=== PATIENT | female | born 1970 | race Caucasian/White ===

== ENCOUNTER 2017-10-20 12:33 | Emergency (ER) | payer BC, OTHER ==
[~2017-10-20] VITALS: Ht 160 cm; Wt 166.0 kg
[2017-10-20 14:00] VITALS: BP 136/89
[2017-10-20] MEDS ORDERED: ONDANSETRON 4 MG/2 ML (SDV) Z0FRAN IVP ONE (14:15)
[2017-10-20] MEDS ORDERED: NS IV 1000 ML 1,000 ML IV SCH (14:15)
--- NOTE | 2017-10-20 14:15 | ED Abdominal Pain ---
General Chief Complaint: Abdominal/GI Problems Stated Complaint: CHEST/ABD PAIN Source of Information: Patient Exam Limitations: No Limitations History of Present Illness Date Seen by Provider: October 20, 2017 Time Seen by Provider: 14:13 Initial Comments To ER per private vehicle from a clinic in [facility] with reports of epigastric abdominal pain for the past 2-3 days associated with nausea and inability to eat. No vomiting. No bowel changes no fevers or chills. She is concerned that this may be either her pancreas or her heart. She has no personal history of heart disease nor does she have any history of immediate family cardiac history. She is a nonsmoker, she quit 3 years ago. She is a diabetic. She denies any chest pain or shortness of breath. Timing/Duration: 1-2 Days Severity/Quality: Moderate Location: Epigastric Radiation: No Radiation Activities at Onset: None Associated Symptoms: Nausea/Vomiting Allergies and Home Medications Allergies Coded Allergies: No Known Drug Allergies (Unverified , 10/20/17) Patient Home Medication List Home Medication List Reviewed: Yes Review of Systems Constitutional: see HPI EENTM: No Symptoms Reported Respiratory: No Symptoms Reported; Denies Cough, Denies Orthopnea Cardiovascular: See HPI; Denies Chest Pain, Denies Edema, Denies Irregular Heart Rate, Denies Lightheadedness Gastrointestinal: See HPI, Abdominal Pain; Denies Constipated, Denies Diarrhea ; Nausea; Denies Vomiting Musculoskeletal: no symptoms reported Skin: no symptoms reported Psychiatric/Neurological: No Symptoms Reported Endocrine: No Symptoms Reported Past Msdjbiu-Rfqryw-Uwrwvf Hx Patient Social History Alcohol Use: Denies Use Recreational Drug Use: No Smoking Status: Never a Smoker Recent Foreign Travel: No Contact w/Someone Who Travel: No Past Medical History Surgeries: Yes Gallbladder, Orthopedic Cardiac: Yes Hypertension Neurological: No Genitourinary: No Gastrointestinal: No Musculoskeletal: No Endocrine: Yes Diabetes, Non-Insulin dep Cancer: No Psychosocial: No Physical Exam Vital Signs Vital Signs - First Documented 10/20/17 12:49 Temp 98.8 Pulse 96 Resp 18 B/P (MAP) 165/100 (121) Pulse Ox 94 O2 Delivery Room Air Capillary Refill : General Appearance: WD/WN, no apparent distress HEENT: PERRL/EOMI, normal ENT inspection Neck: non-tender, full range of motion Respiratory: normal breath sounds, no respiratory distress, no accessory muscle use Cardiovascular: regular rate, rhythm, no murmur Gastrointestinal: normal bowel sounds, soft, tenderness (Epigastric tenderness) Extremities: normal range of motion, non-tender Neurologic/Psychiatric: alert, normal mood/affect, oriented x 3 Skin: normal color, warm/dry Progress/Results/Core Measures Results/Orders Lab Results Laboratory Tests Test 10/20/17 14:24 Range/Units White Blood Count 13.0 H 4.3-11.0 10^3/uL Red Blood Count 4.82 4.35-5.85 10^6/uL Hemoglobin 13.7 11.5-16.0 G/DL Hematocrit 41 35-52 % Mean Corpuscular Volume 84 80-99 FL Mean Corpuscular Hemoglobin 28 25-34 PG Mean Corpuscular Hemoglobin Concent 34 32-36 G/DL Red Cell Distribution Width 14.1 10.0-14.5 % Platelet Count 369 130-400 10^3/uL Mean Platelet Volume 9.6 7.4-10.4 FL Neutrophils (%) (Auto) 74 42-75 % Lymphocytes (%) (Auto) 15 12-44 % Monocytes (%) (Auto) 7 0-12 % Eosinophils (%) (Auto) 4 0-10 % Basophils (%) (Auto) 0 0-10 % Neutrophils # (Auto) 9.7 H 1.8-7.8 X 10^3 Lymphocytes # (Auto) 1.9 1.0-4.0 X 10^3 Monocytes # (Auto) 0.9 0.0-1.0 X 10^3 Eosinophils # (Auto) 0.5 H 0.0-0.3 10^3/uL Basophils # (Auto) 0.0 0.0-0.1 10^3/uL Sodium Level 135 135-145 MMOL/L Potassium Level 4.1 3.6-5.0 MMOL/L Chloride Level 102 98-107 MMOL/L Carbon Dioxide Level 24 21-32 MMOL/L Anion Gap 9 5-14 MMOL/L Blood Urea Nitrogen 7 7-18 MG/DL Creatinine 0.67 0.60-1.30 MG/DL Estimat Glomerular Filtration Rate > 60 BUN/Creatinine Ratio 10 Glucose Level 117 H 70-105 MG/DL Calcium Level 9.3 8.5-10.1 MG/DL Total Bilirubin 0.6 0.1-1.0 MG/DL Aspartate Amino Transf (AST/SGOT) 14 5-34 U/L Alanine Aminotransferase (ALT/SGPT) 21 0-55 U/L Alkaline Phosphatase 103 40-136 U/L Troponin I < 0.30 <0.30 NG/ML Total Protein 7.5 6.4-8.2 GM/DL Albumin 4.2 3.2-4.5 GM/DL Lipase 7 L 8-78 U/L My Orders Orders - MINESH DILLON APRN Cbc With Automated Diff (10/20/17 14:11) Comprehensive Metabolic Panel (10/20/17 14:11) Ua Culture If Indicated (10/20/17 14:11) Fc-Cfvfvnp-Gskutf (Order) (10/20/17 14:11) Lipase (10/20/17 14:11) Ekg Tracing (10/20/17 14:11) Troponin I (10/20/17 14:11) Chest Pa/Lat (2 View) (10/20/17 14:11) Ns Iv 1000 Ml (Sodium Chloride 0.9%) (10/20/17 14:15) Ondansetron Injection (Zofran Injectio (10/20/17 14:15) Antacid Suspension (Mylanta Suspension (10/20/17 15:30) Lidocaine 2% Viscous 15 Ml (Xylocaine Vi (10/20/17 15:30) Ct Abdomen/Pelvis W (10/20/17 15:18) Iohexol Injection (Omnipaque 350 Mg/Ml 1 (10/20/17 15:30) Ns (Ivpb) (Sodium Chloride 0.9%) (10/20/17 15:30) Medications Given in ED Current Medications Medications Dose Ordered Sig/Duke Route Start Time Stop Time Status Last Admin Dose Admin Al Hydrox/Mg Hydrox/Simethicone 30 ml ONCE ONCE PO 10/20/17 15:30 10/20/17 15:31 DC 10/20/17 15:39 30 ML Iohexol 100 ml ONCE ONCE IV 10/20/17 15:30 10/20/17 15:31 DC 10/20/17 15:46 100 ML Lidocaine HCl 15 ml ONCE ONCE PO 10/20/17 15:30 10/20/17 15:31 DC 10/20/17 15:39 15 ML Ondansetron HCl 8 mg ONCE ONCE IVP 10/20/17 14:15 10/20/17 14:16 DC 10/20/17 14:33 8 MG Sodium Chloride 250 ml ONCE ONCE IV 10/20/17 15:30 10/20/17 15:31 DC 10/20/17 15:46 80 ML Vital Signs/I&O 10/20/17 10/20/17 12:49 14:00 Temp 98.8 Pulse 96 97 Resp 18 18 B/P (MAP) 165/100 (121) 136/89 (105) Pulse Ox 94 96 O2 Delivery Room Air Room Air Departure Communication (Admissions) 1108-no improvement in pain after Toradol for a GI cocktail. She is on contrave weight loss medication so opiates will not be effective for her. I'll give a prescription for acid human factors advisor lead and Zofran. Impression Primary Impression: Epigastric abdominal pain Disposition: HOME, SELF-CARE Condition: Stable Departure-Patient Inst. Decision time for Depature: 16:24 Referrals: NO,LOCAL PHYSICIAN (PCP/Family) Primary Care Physician Patient Instructions: Acute Abdomen (Belly Pain), Adult (DC) Add. Discharge Instructions: 1. Acid human factors advisor lead as directed 2. Nausea medication as needed All discharge instructions reviewed with patient and/or family. Voiced understanding. Scripts Ondansetron (Zofran Odt) 8 Mg Tab.rapdis 8 MG PO Q6H PRN for NAUSEA/VOMITING-1ST LINE, #10 TAB Prov: MINESH DILLON APRN 10/20/17 Famotidine (Pepcid) 20 Mg Tablet 20 MG PO BID, #14 TAB Prov: MINESH DILLON APRN 10/20/17 MIENSH DILLON APRN October 20, 2017 14:15
[2017-10-20 14:31] LABS: BASOPHILS % (AUTO) 0 % (0-10); EOSINOPHILS # (AUTO) 0.5 10^3/uL (0.0-0.3); EOSINOPHILS % (AUTO) 4 % (0-10); HEMATOCRIT 41 % (35-52); HEMOGLOBIN 13.7 G/DL (11.5-16.0); LYMPHOCYTES # (AUTO) 1.9 X 10^3 (1.0-4.0); LYMPHOCYTES % (AUTO) 15 % (12-44); MEAN CORPUSCULAR HEMOGLOBIN 28 PG (25-34); MEAN CORPUSCULAR HGB CONC 34 G/DL (32-36); MEAN CORPUSCULAR VOLUME 84 FL (80-99); MEAN PLATELET VOLUME 9.6 FL (7.4-10.4); MONOCYTES # (AUTO) 0.9 X 10^3 (0.0-1.0); MONOCYTES % (AUTO) 7 % (0-12); NEUTROPHILS # (AUTO) 9.7 X 10^3 (1.8-7.8); NEUTROPHILS % (AUTO) 74 % (42-75); PLATELET COUNT 369 10^3/uL (130-400); RED BLOOD COUNT 4.82 10^6/uL (4.35-5.85); RED CELL DISTRIBUTION WIDTH 14.1 % (10.0-14.5)
[2017-10-20 14:56] LABS: ALANINE AMINOTRANSFERASE 21 U/L (0-55); ALBUMIN 4.2 GM/DL (3.2-4.5); ALKALINE PHOSPHATASE 103 U/L (40-136); BILIRUBIN,TOTAL 0.6 MG/DL (0.1-1.0); BUN/CREATININE RATIO 10; CALCIUM 9.3 MG/DL (8.5-10.1); CARBON DIOXIDE 24 MMOL/L (21-32); CHLORIDE 102 MMOL/L (98-107); CREATININE SERUM 0.67 MG/DL (0.60-1.30); GFR ESTIMATED > 60; GLUCOSE 117 MG/DL (70-105); LIPASE 7 U/L (8-78); POTASSIUM 4.1 MMOL/L (3.6-5.0); SODIUM 135 MMOL/L (135-145); TOTAL PROTEIN 7.5 GM/DL (6.4-8.2)
--- NOTE | 2017-10-20 15:02 | Diagnostic Imaging Report ---
INDICATION: Chest pain. EXAMINATION: Single view of the chest was obtained at 3:09 p.m. COMPARISON: No prior studies are available for comparison. FINDINGS: The heart size is normal. The pulmonary vascularity is unremarkable. The lungs are clear. No infiltrate, effusion or pneumothorax is detected. IMPRESSION: No acute cardiopulmonary process is detected. Dictated by: Dictated on workstation # [id number]
[2017-10-20] MEDS ORDERED: LIDOCAINE 2% VISCOUS 15 ML UDC PO ONE (15:30)
[2017-10-20] MEDS ORDERED: NS 250 ML (IVPB) BAG IV ONE (15:30)
[2017-10-20] MEDS ORDERED: ANTACID SUSP 30 ML UDC (MYLANTA) PO ONE (15:30)
[2017-10-20] MEDS ORDERED: IOHEXOL 350 MG/ML 100 ML (OMNIPAQUE 350) VIAL IV ONE (15:30)
--- NOTE | 2017-10-20 16:14 | Diagnostic Imaging Report ---
PROCEDURE: CT abdomen and pelvis with contrast. TECHNIQUE: Multiple contiguous axial images were obtained through the abdomen and pelvis after administration of intravenous contrast. INDICATION: Mid upper abdominal pain x3 days. Nausea. COMPARISON: None. FINDINGS: Included portions of the lung bases are clear. CT ABDOMEN: Normal appendix is identified. Small bowel loops are nondistended. Liver appears diffusely hypodense on this postcontrast exam. Otherwise, the liver, adrenal glands, kidneys, spleen, and pancreas have a normal CT appearance. There is no loculated fluid collection, free fluid, nor free air within the abdomen. No abnormal mesenteric or retroperitoneal adenopathy is seen. Bony structures show no acute abnormalities. CT PELVIS: Urinary bladder is grossly unremarkable. There is no loculated fluid collection, free fluid, nor free air within the pelvis. No abnormal lymph nodes are seen. Bony structures show no acute abnormalities. IMPRESSION: 1. No acute abnormalities are seen within the abdomen or pelvis. 2. Hepatic steatosis. Dictated by: Dictated on workstation # [id number]
[2017-10-20] MEDS ORDERED: ONDA8TAB9 PO (16:27)
[2017-10-20] MEDS ORDERED: FAMO-119 PO (16:27)
[2017-10-20 16:32] LABS: BILIRUBIN,URINE NEGATIVE (NEGATIVE); CLARITY,URINE CLEAR; COLOR,URINE YELLOW; GLUCOSE, URINE (UA) NEGATIVE (NEGATIVE); KETONES,URINE 2+ (NEGATIVE); LEUKOCYTE ESTERASE ,URINE 2+ (NEGATIVE); NITRITE,URINE NEGATIVE (NEGATIVE); PH,URINE 5 (5-9); PROTEIN,URINE 1+ (NEGATIVE); UROBILINOGEN,URINE NORMAL (NORMAL)
[2017-10-20 16:46] LABS: BACTERIA,URINE TRACE /HPF
[2017-10-20] MEDS ORDERED: SULF1TAB35 PO (16:53)
[2017-10-20 17:06] VITALS: BP 119/83
== END 2017-10-20 17:06 | disposition home or self-care (01) ==
LOC: ER 12:37
DX: R10.13 Epigastric pain (principal); E11.9 Type 2 diabetes mellitus without complications; I10 Essential (primary) hypertension; Z87.891 Personal history of nicotine dependence
CPT/HCPCS: 36415; 71046; 74177; 80053; 81000; 83690; 84484; 85025; 87077; 87088; 93005; 96361; 96374

== ENCOUNTER 2018-08-23 10:51 | Emergency (ER) | payer BC ==
[~2018-08-23] VITALS: Ht 160 cm; Wt 174.6 kg
[~2018-08-23 10:51] MED LIST: FAMO-119 PO; ONDA8TAB9 PO; SULF1TAB35 PO
[2018-08-23] MEDS ORDERED: HYDR-3820 PO (11:50)
[2018-08-23] MEDS ORDERED: MONT10TA21 PO (11:50)
[2018-08-23] MEDS ORDERED: METF-399 PO (11:50)
[2018-08-23] MEDS ORDERED: LISI10TA2 PO (11:50)
[2018-08-23] MEDS ORDERED: oxyCODONE/APAP 10/325MG (PERCOCET 10) TABLET PO ONE (12:00)
[2018-08-23] MEDS ORDERED: oxyCODONE/APAP 5/325MG (PERCOCET 5) TABLET ONE (12:05)
[2018-08-23 12:07] LABS: CLARITY,URINE CLEAR; COLOR,URINE YELLOW; GLUCOSE, URINE (UA) 2+ (NEGATIVE); PROTEIN,URINE NEGATIVE (NEGATIVE)
[2018-08-23 12:08] LABS: BACTERIA,URINE MODERATE /HPF; BILIRUBIN,URINE NEGATIVE (NEGATIVE); KETONES,URINE TRACE (NEGATIVE); LEUKOCYTE ESTERASE ,URINE NEGATIVE (NEGATIVE); NITRITE,URINE NEGATIVE (NEGATIVE); RBC,URINE 0-2 /HPF; SQUAMOUS EPITHELIAL CELL,UR 25-50 /HPF; UROBILINOGEN,URINE 0.2 MG/DL (NORMAL)
--- NOTE | 2018-08-23 12:53 | Diagnostic Imaging Report ---
PROCEDURE: CT abdomen and pelvis without contrast. TECHNIQUE: Multiple contiguous axial images were obtained through the abdomen and pelvis without the use of intravenous contrast. INDICATION: Right-sided abdominal pain around back on the right side x4 days. CORRELATION STUDY: 10/20/2017 FINDINGS: Examination is limited given extensive soft tissue attenuation artifact as well as lack of contrast. LOWER THORAX: Clear. LIVER: Rather enlarged measuring approximately 27 cm in craniocaudal length. There is extensive fatty infiltration of the liver. GALLBLADDER: Cholecystectomy. No significant bile duct dilatation. Additional clips adjacent inferior margins of the liver. SPLEEN: Borderline in size, otherwise unremarkable. PANCREAS: Unremarkable. ADRENAL GLANDS: Unremarkable. KIDNEYS: Normal configuration. No calcification or obstruction. ABDOMINAL AORTA: Unremarkable, nonaneurysmal. GASTROINTESTINAL TRACT: No obstruction or inflammation. Normal appendix. No abdominal ascites or free air. URINARY BLADDER: Relatively decompressed. REPRODUCTIVE: Uterus and adnexa unremarkable. OSSEOUS STRUCTURES: No acute abnormality. OTHER: None. IMPRESSION: 1. Negative for acute abnormality of the abdomen or pelvis on noncontrast CT imaging. 2. Rather significant severity hepatomegaly with pronounced hepatic steatosis. Dictated by: Dictated on workstation # [id number]
[2018-08-23] MEDS ORDERED: OXYC1TAB12 PO (13:04)
[2018-08-23 13:12] VITALS: BP 148/92
--- NOTE | 2018-08-23 13:36 | ED Abdominal Pain ---
General Chief Complaint: -Female Stated Complaint: RT FLANK/BACK/URINARY PAIN Nursing Triage Note: PT REPORTS RIGHT SIDED FLANK AND BACK PAIN. iS CURRENTLY ON BACTRIM FOR A UTI. Sepsis Screen: No Definite Risk Source of Information: Patient History of Present Illness Date Seen by Provider: Aug 23, 2018 Time Seen by Provider: 11:00 Initial Comments A 8-year-old female presents with right-sided flank pain onset was 3 days ago. Patient seen by her PCP for the same and prescribed Bactrim DS for lower urinary tract infection. Patient denies nausea vomiting, fever chills or sweats. Denies hematuria. Patient was told that she may possibly have a kidney stone was referred to the ED for further evaluation. Denies history of kidney stones, decreased urine output. Patient does not have regular menstrual periods. Denies lower extremity weakness or loss of sensation. Bili urinary frequency urgency or burning. Back pain is worse with deep breathing and movement. Allergies and Home Medications Allergies Coded Allergies: amoxicillin (Verified Allergy, Severe, ANAPHYLAXIS, 08/23/18) clavulanic acid (Verified Allergy, Severe, ANAPHYLAXIS, 08/23/18) Home Medications Famotidine 20 Mg Tablet, 20 MG PO BID Prescribed by: MINESH DILLON on 10/20/17 1627 Hydrocodone/Acetaminophen 1 Each Tablet, 1 TAB PO Q6H PRN for PAIN-MODERATE, ( Reported) Lisinopril 10 Mg Tablet, 10 MG PO DAILY, (Reported) Ondansetron 8 Mg Tab.rapdis, 8 MG PO Q6H PRN for NAUSEA/VOMITING-1ST LINE Prescribed by: MINESH DILLON on 10/20/17 1627 Oxycodone HCl/Acetaminophen 1 Each Tablet, 1 TAB PO Q8H PRN for PAIN-MODERATE Prescribed by: ARON JENNINGS on 08/23/18 1304 Sulfamethoxazole/Trimethoprim 1 Each Tablet, 1 EACH PO BID Prescribed by: MINESH DILLON on 10/20/17 1653 Patient Home Medication List Home Medication List Reviewed: Yes Review of Systems Review of Systems Constitutional: no symptoms reported EENTM: No Symptoms Reported Respiratory: No Symptoms Reported, See HPI Cardiovascular: No Symptoms Reported Gastrointestinal: No Symptoms Reported Genitourinary: See HPI Musculoskeletal: see HPI Skin: no symptoms reported Psychiatric/Neurological: No Symptoms Reported Endocrine: No Symptoms Reported All Other Systems Reviewed Negative Unless Noted: Yes Past Aoprmaa-Miylhx-Ogolim Hx Past Med/Social Hx: Reviewed Nursing Past Med/Soc Hx Patient Social History Alcohol Use: Denies Use Recreational Drug Use: No Recent Foreign Travel: No Contact w/Someone Who Travel: No Recent Infectious Disease Expo: No Recent Hopitalizations: No Physical Abuse: No Sexual Abuse: No Mistreated: No Fear: No Seasonal Allergies Seasonal Allergies: Yes Past Medical History Surgeries: Yes Gallbladder, Orthopedic Respiratory: No Cardiac: Yes Hypertension Neurological: No Hx : 2 Hx Para: 2 Genitourinary: No Gastrointestinal: No Musculoskeletal: No Endocrine: Yes Diabetes, Non-Insulin dep Cancer: No Psychosocial: No Integumentary: No Physical Exam Vital Signs Vital Signs - First Documented 08/23/18 08/23/18 11:32 13:12 Temp 98.6 Pulse 106 Resp 20 B/P (MAP) 148/92 (110) Pulse Ox 99 O2 Delivery Room Air Capillary Refill : Less Than 3 Seconds Height/Weight/BMI Height: 5'3.00" Weight: 385lbs. oz. 174.197384kg; BMI Method:Stated General Appearance: WD/WN, no apparent distress HEENT: PERRL/EOMI, normal ENT inspection, pharynx normal Neck: non-tender, full range of motion Respiratory: chest non-tender, lungs clear, no respiratory distress Cardiovascular: normal peripheral pulses Gastrointestinal: normal bowel sounds Extremities: normal range of motion Back: no vertebral tenderness; No CVA tenderness (R), No CVA tenderness (L); muscle spasm Skin: normal color Focused Exam Sepsis Stage: Ruled Out Progress/Results/Core Measures Results/Orders Lab Results Laboratory Tests Test 08/23/18 11:04 Range/Units Urine Color YELLOW Urine Clarity CLEAR Urine pH 6.0 5-9 Urine Specific [place] >=1.030 1.016-1.022 Urine Protein NEGATIVE NEGATIVE Urine Glucose (UA) 2+ H NEGATIVE Urine Ketones TRACE H NEGATIVE Urine Nitrite NEGATIVE NEGATIVE Urine Bilirubin NEGATIVE NEGATIVE Urine Urobilinogen 0.2 NORMAL MG/DL Urine Leukocyte Esterase NEGATIVE NEGATIVE Urine RBC (Auto) NEGATIVE NEGATIVE Urine RBC 0-2 /HPF Urine WBC 2-5 /HPF Urine Squamous Epithelial Cells 25-50 H /HPF Urine Crystals NONE /LPF Urine Bacteria MODERATE H /HPF Urine Casts NONE /LPF Urine Mucus MODERATE H /LPF Urine Culture Indicated NO Urine Test NEGATIVE NEGATIVE My Orders Orders - ARON JENNINGS DO Urinalysis (08/23/18 11:02) Ua Culture If Indicated (08/23/18 11:13) Hcg,Qualitative Urine (08/23/18 11:31) Ct Abdomen/Pelvis Wo (08/23/18 11:48) Oxycodone/Acet 10/325mg Tablet (Percocet (08/23/18 12:00) Oxycodone/Apap 5/325mg Tablet (Percocet (08/23/18 12:05) Medications Given in ED Current Medications Medications Dose Ordered Sig/Duke Route Start Time Stop Time Status Last Admin Dose Admin Oxycodone/ Acetaminophen 1 tab ONCE ONCE PO 08/23/18 12:00 08/23/18 12:01 DC 08/23/18 12:07 1 TAB Vital Signs/I&O 08/23/18 08/23/18 08/23/18 11:32 12:07 13:12 Temp 98.6 98.3 98.2 Pulse 106 82 Resp 20 18 B/P (MAP) 148/92 (110) 148/92 (110) Pulse Ox 99 O2 Delivery Room Air Room Air Blood Pressure Mean: 110 Progress Progress Note : Time: 12:30 Progress Note Symptoms improved with treatment. No CT findings of appendicitis or kidney stone. Suspect musculoskeletal pain. We'll treat supportively with PCP follow- up. Return precautions reviewed. Initial ECG Impression Date: Aug 23, 2018 Initial ECG Impression Time: 12:30 Departure Impression Primary Impression: Acute right flank pain Disposition: 01 HOME, SELF-CARE Condition: Improved Departure-Patient Inst. Add. Discharge Instructions: You were evaluated in the emergency department for flank pain. Urinalysis and CT scan were performed and were nondiagnostic. The exact cause of your symptoms cannot be determined but may be due to mechanical back pain. Please avoid heavy lifting and strays physical activity. Take ibuprofen for pain and oxycodone as needed for additional relief. Do not cannot combine with other Tylenol containing buttocks. Follow-up with your PCP next 3-5 days for further management. All discharge instructions reviewed with patient and/or family. Voiced understanding. Scripts Oxycodone HCl/Acetaminophen (Percocet 10-325 mg Tablet) 1 Each Tablet 1 TAB PO Q8H PRN for PAIN-MODERATE MDD 3, #10 TAB Prov: ARON JENNINGS DO 08/23/18 ARON JENNINGS DO Aug 23, 2018 13:36
[2018-08-24] MEDS ORDERED: PRD20T PO (19:23)
[2018-08-25] MEDS ORDERED: PRD20T PO (09:12)
== END 2018-08-23 13:09 | disposition home or self-care (01) ==
LOC: EDUNIT# 10:51 → ER FS 10:55
DX: R10.9 Unspecified abdominal pain (principal); I10 Essential (primary) hypertension; E11.9 Type 2 diabetes mellitus without complications; Z88.0 Allergy status to penicillin; Z88.8 Allergy status to other drugs, medicaments and biological substances; Z98.890 Other specified postprocedural states
CPT/HCPCS: 74176; 81000; 84703

== ENCOUNTER 2018-08-24 14:21 | Emergency (ER) | payer BC ==
[~2018-08-24] VITALS: Ht 160 cm; Wt 174.6 kg
[~2018-08-24 14:21] MED LIST changes: +HYDR-3820 PO; +LISI10TA2 PO; +METF-399 PO; +MONT10TA21 PO; +OXYC1TAB12 PO
[2018-08-24] MEDS ORDERED: RT-ALBUTEROL/IPRATROPIUM 3 ML (DUONEB) VIAL INH ONE (14:45)
[2018-08-24] MEDS ORDERED: methylPREDNISolone 125 MG (Solu-MEDROL) VIAL IVP ONE (14:45)
[2018-08-24] MEDS ORDERED: diphenhydrAMINE 50 MG/ML INJ (BENADRYL) IVP ONE (14:45)
[2018-08-24] MEDS ORDERED: NS IV 1000 ML 1,000 ML IV SCH (14:45)
[2018-08-24] MEDS ORDERED: FAMOTIDINE 20MG/2ML IV (PEPCID) IVP ONE (14:45)
[2018-08-24] MEDS ORDERED: morphine INJ 10 MG/ML 1ML (SYR OR VIAL) IVP STA (15:26)
--- NOTE | 2018-08-24 15:26 | ED Respiratory ---
General Chief Complaint: Respiratory Problems Stated Complaint: SOB History of Present Illness Date Seen by Provider: Aug 24, 2018 Time Seen by Provider: 14:30 Initial Comments Patient is a 48-year-old female who presents to the emergency department today complaining of possible allergic reaction. Patient was recently treated for a urinary tract infection by her primary care doctor 3 days ago. She was placed on Bactrim. Today she presents to the emergency department complaining of feeling short of breath. She also has some mild splotchy erythematous areas that have formed over the arms. She does have a known history of COPD. This does not seem flared. She has no worsening cough or sputum production. She does complain of feeling dyspneic. The symptoms started earlier today. (OLU LEHMAN DO) Allergies and Home Medications Allergies Coded Allergies: amoxicillin (Verified Allergy, Severe, ANAPHYLAXIS, 08/23/18) clavulanic acid (Verified Allergy, Severe, ANAPHYLAXIS, 08/23/18) sulfamethoxazole (Verified Allergy, Mild, 08/24/18) trimethoprim (Verified Allergy, Mild, 08/24/18) Home Medications Famotidine 20 Mg Tablet, 20 MG PO BID Prescribed by: MINESH DILLON on 10/20/17 1627 Hydrocodone/Acetaminophen 1 Each Tablet, 1 TAB PO Q6H PRN for PAIN-MODERATE, ( Reported) Lisinopril 10 Mg Tablet, 10 MG PO DAILY, (Reported) Ondansetron 8 Mg Tab.rapdis, 8 MG PO Q6H PRN for NAUSEA/VOMITING-1ST LINE Prescribed by: MINESH DILLON on 10/20/17 1627 Oxycodone HCl/Acetaminophen 1 Each Tablet, 1 TAB PO Q8H PRN for PAIN-MODERATE Prescribed by: ARON JENNINGS on 08/23/18 1304 Sulfamethoxazole/Trimethoprim 1 Each Tablet, 1 EACH PO BID Prescribed by: MINESH DILLON on 10/20/17 1653 Patient Home Medication List Home Medication List Reviewed: Yes (OLU LEHMAN DO) Review of Systems Review of Systems Constitutional: no symptoms reported EENTM: see HPI Respiratory: see HPI Cardiovascular: no symptoms reported Skin: no symptoms reported Psychiatric/Neurological: No Symptoms Reported (OLU LEHMAN DO) Past [facility]wpc[facility]-Geql[facility]-Qlxmb[facility] Hx Patient Social History Recent Foreign Travel: No Contact w/Someone Who Travel: No Recent Hopitalizations: No (OLU LEHMAN DO) Seasonal Allergies Seasonal Allergies: Yes (OLU LEHMAN DO) Past Medical History Surgeries: Yes Gallbladder, Orthopedic Respiratory: No Cardiac: Yes Hypertension Neurological: No Genitourinary: No Gastrointestinal: No Musculoskeletal: No Endocrine: Yes Diabetes, Non-Insulin dep Cancer: No Psychosocial: No Integumentary: No (OLU LEHMAN DO) Physical Exam Vital Signs - First Documented 08/24/18 14:27 Temp 98.6 Pulse 105 Resp 22 B/P (MAP) 123/106 (112) Pulse Ox 94 O2 Delivery Room Air (ELLO DINH MD) Capillary Refill : (LEHMANOLU DO) Height: 5'3.00" Weight: 385lbs. oz. 174.222675vv; BMI Method:Stated General Appearance: WD/WN, no apparent distress HEENT: PERRL/EOMI, normal ENT inspection, TMs normal Neck: full range of motion, supple Respiratory: chest non-tender, other (few scattered wheezes with good air movement in all hyde) Cardiovascular: regular rate, rhythm, no edema Extremities: normal range of motion, no pedal edema Neurologic/Psychiatric: dial polisher II-XII nml as tested, alert, normal mood/affect, oriented x 3 Skin: normal color, warm/dry (LEHMANDEBBYOLU Kelvin HORTON) Progress/Results/Core Measures Suspected Sepsis SIRS Temperature: Pulse: Respiratory Rate: Laboratory Tests 08/24/18 16:25: White Blood Count 7.8 Blood Pressure / Mean: Laboratory Tests 08/24/18 16:25: Creatinine 0.51L, Platelet Count 296 (LEHMANOLU Kelvin HORTON) Results/Orders Lab Results Laboratory Tests Test 08/24/18 16:25 Range/Units White Blood Count 7.8 4.3-11.0 10^3/uL Red Blood Count 4.82 4.35-5.85 10^6/uL Hemoglobin 13.8 11.5-16.0 G/DL Hematocrit 42 35-52 % Mean Corpuscular Volume 87 80-99 FL Mean Corpuscular Hemoglobin 29 25-34 PG Mean Corpuscular Hemoglobin Concent 33 32-36 G/DL Red Cell Distribution Width 13.0 10.0-14.5 % Platelet Count 296 130-400 10^3/uL Mean Platelet Volume 9.9 7.4-10.4 FL Neutrophils (%) (Auto) 75 42-75 % Lymphocytes (%) (Auto) 17 12-44 % Monocytes (%) (Auto) 5 0-12 % Eosinophils (%) (Auto) 3 0-10 % Basophils (%) (Auto) 1 0-10 % Neutrophils # (Auto) 5.8 1.8-7.8 X 10^3 Lymphocytes # (Auto) 1.3 1.0-4.0 X 10^3 Monocytes # (Auto) 0.4 0.0-1.0 X 10^3 Eosinophils # (Auto) 0.2 0.0-0.3 10^3/uL Basophils # (Auto) 0.1 0.0-0.1 10^3/uL D-Dimer 1.04 H 0.00-0.49 UG/ML Sodium Level 134 L 135-145 MMOL/L Potassium Level 4.2 3.6-5.0 MMOL/L Chloride Level 95 L 98-107 MMOL/L Carbon Dioxide Level 30 21-32 MMOL/L Anion Gap 9 5-14 MMOL/L Blood Urea Nitrogen 6 L 7-18 MG/DL Creatinine 0.51 L 0.60-1.30 MG/DL Estimat Glomerular Filtration Rate > 60 BUN/Creatinine Ratio 12 Glucose Level 247 H 70-105 MG/DL Calcium Level 9.0 8.5-10.1 MG/DL Troponin T < 6 <=10 NG/L Pro-B-Type Natriuretic Peptide 8.5 <75.0 PG/ML (LELO DINH MD) Medications Given in ED Current Medications Medications Dose Ordered Sig/Duke Route Start Time Stop Time Status Last Admin Dose Admin Albuterol/ Ipratropium 3 ml ONCE ONCE INH 08/24/18 14:45 08/24/18 14:46 DC 08/24/18 15:13 3 ML Diphenhydramine HCl 25 mg ONCE ONCE IVP 08/24/18 14:45 08/24/18 14:46 DC 08/24/18 15:14 25 MG Famotidine 20 mg ONCE ONCE IVP 08/24/18 14:45 08/24/18 14:46 DC 08/24/18 15:13 20 MG Iopamidol 100 ml ONCE ONCE IV 08/24/18 17:45 08/24/18 17:49 DC 08/24/18 18:04 100 ML Methylprednisolone Sodium Succinate 125 mg ONCE ONCE IVP 08/24/18 14:45 08/24/18 14:46 DC 08/24/18 15:14 125 MG Sodium Chloride 10 ml NEEDED PRN IV 08/24/18 17:45 08/24/18 18:04 10 ML Sodium Chloride 50 ml ONCE ONCE IV 08/24/18 17:45 08/24/18 17:49 DC 08/24/18 18:04 50 ML (LELO DINH MD) Vital Signs/I&O 08/24/18 14:27 Temp 98.6 Pulse 105 Resp 22 B/P (MAP) 123/106 (112) Pulse Ox 94 O2 Delivery Room Air (LELO DINH MD) Vital Signs/I&O Capillary Refill : (OLU LEHMAN DO) Progress Note : Time: 14:30 Progress Note Patient is seen and examined immediately on arrival to her room. She does have a few scattered wheezes but no acute increased work of breathing and she does continue to have good air movement in all hyde. No swelling about the lips or face. She has a few faint urticarial areas over the arms but nowhere else on examination. We'll give Solu-Medrol and Benadryl and Pepcid intravenously. We' ll give IV fluids. DuoNeb was also ordered. 15:10: Patient feeling improved although still has some subjective shortness of breath. Additional breathing treatment is ordered. Unclear etiology for her dyspnea which is ongoing but improved. Lungs now clear with good air mvt. CXR is ordered. CBC, BMP, BNP, d dimer, trop, ekg. 17:35: D dimer is returned. Patient with resting SaO2 of 90-93%. Continues to feel mildly dyspneic but is improved. D Dimer is elevated. CTA of chest is ordered. 17:45: ED Summary: Patient initially presented to the ER with what seemed like a minor allergic reaction possibly to an antibiotic she was started for urinary tract infection. During the ER course however she was given 2 albuterol nebulized treatments and did not have significant improvement in her dyspnea. She describes a pain in the right flank and rib cage that she states making it difficult for her to take a deep breath. Over the course of the ER visit she also was noted to have mild hypoxia. And she continued to have dyspnea despite interventions. Because of this, additional labs including troponin were completed. EKG was done and was normal with a rate of 102. D-dimer was checked and was elevated. Because of this, CT angiogram of the chest was ordered. This is pending at the time of turnover of care. Transfer care to Dr. Dinh. Please follow up on CT angiogram for this patient. (OLU LEHMAN DO) Progress Note : Progress Note 191: Awake alert no distress. Test results discussed with patient. Still complains of some right lower rib pain with inspiration. Lungs are clear now. Hives and arms are clearing. Oxygen saturations are adequate. Advised patient to stop Bactrim. We'll prescribe prednisone 40 mg per day for 5 days. (LELO DINH MD) ECG Initial ECG Impression Time: 17:25 Initial ECG Rate: 102 Initial ECG Rhythm: S.Tach Initial ECG Intervals: Normal Initial ECG Impression: Normal (OLU LEHMAN DO) Diagnostic Imaging Diagonstic Imaging: Xray Plain Films/CT/US/NM/MRI: chest Comments No acute findings on CXR to explain the patient's symptoms. Reviewed: Reviewed [place] Hawk Study, Reviewed by Me (OLU LEHMAN DO) Departure Impression Primary Impression: Allergic reaction Additional Impression: Acute right flank pain Disposition: HOME, SELF-CARE Condition: Stable Departure-Patient Inst. Decision time for Depature: 19:21 (LELO DINH MD) Referrals: REMY CONTEH APRN (PCP) Primary Care Physician VARINDER RIGGINS MD (Family) Primary Care Physician Patient Instructions: Pleuritic Chest Pain (DC) Add. Discharge Instructions: Stop Bactrim. Continue other medicines. Start prednisone tomorrow. Return if breathing worsens. See your doctor Monday. All discharge instructions reviewed with patient and/or family. Voiced understanding. Scripts Prednisone (Prednisone) 20 Mg Tab 20 MG PO BID for 5 Days, #10 TAB Take 3 tabs(60mg)daily, decrease by 1/2 tab(10mg)daily. Prov: LELO DINH MD 08/24/18 OLU LEHMAN DO Aug 24, 2018 15:26 LELO DINH MD Aug 24, 2018 19:17
[2018-08-24] MEDS ORDERED: RT-ALBUTEROL SULF 2.5 MG/3 ML PRE-MIX VIAL INH STA (16:07)
--- NOTE | 2018-08-24 16:27 | Diagnostic Imaging Report ---
INDICATION: Difficulty breathing. EXAMINATION: Frontal chest was obtained at 4:07 p.m. COMPARISON: 10/20/2017. FINDINGS: Heart is borderline in size. There is mild central vascular prominence. There is no focal infiltrate, pneumothorax or pleural fluid. IMPRESSION: Borderline heart size with mild central vascular prominence. No focal infiltrate, pneumothorax or pleural fluid. Dictated by: Dictated on workstation # [id number]
[2018-08-24 16:41] LABS: HEMOGLOBIN 13.8 G/DL (11.5-16.0); MEAN CORPUSCULAR HEMOGLOBIN 29 PG (25-34); WHITE BLOOD COUNT 7.8 10^3/uL (4.3-11.0)
[2018-08-24 16:42] LABS: BASOPHILS # (AUTO) 0.1 10^3/uL (0.0-0.1); BASOPHILS % (AUTO) 1 % (0-10); EOSINOPHILS # (AUTO) 0.2 10^3/uL (0.0-0.3); EOSINOPHILS % (AUTO) 3 % (0-10); HEMATOCRIT 42 % (35-52); LYMPHOCYTES # (AUTO) 1.3 X 10^3 (1.0-4.0); LYMPHOCYTES % (AUTO) 17 % (12-44); MEAN CORPUSCULAR HGB CONC 33 G/DL (32-36); MEAN CORPUSCULAR VOLUME 87 FL (80-99); MEAN PLATELET VOLUME 9.9 FL (7.4-10.4); MONOCYTES # (AUTO) 0.4 X 10^3 (0.0-1.0); MONOCYTES % (AUTO) 5 % (0-12); NEUTROPHILS # (AUTO) 5.8 X 10^3 (1.8-7.8); NEUTROPHILS % (AUTO) 75 % (42-75); PLATELET COUNT 296 10^3/uL (130-400)
[2018-08-24 17:25] LABS: CHLORIDE 95 MMOL/L (98-107); POTASSIUM 4.2 MMOL/L (3.6-5.0); SODIUM 134 MMOL/L (135-145)
[2018-08-24 17:26] LABS: BUN/CREATININE RATIO 12; CARBON DIOXIDE 30 MMOL/L (21-32); CREATININE SERUM 0.51 MG/DL (0.60-1.30); GFR ESTIMATED > 60; GLUCOSE 247 MG/DL (70-105)
[2018-08-24] MEDS ORDERED: IOPAMIDOL 61% 100 ML (ISOVUE 300) VIAL IV ONE (17:45)
[2018-08-24] MEDS ORDERED: RECEIVED CONTRAST 20 ML VIAL IV SCH (17:45)
[2018-08-24] MEDS ORDERED: NS 50 ML (IVPB) BAG IV ONE (17:45)
[2018-08-24] MEDS ORDERED: CATHETER FLUSH 10 ML SYR IV PRN (17:45)
--- NOTE | 2018-08-24 18:59 | Diagnostic Imaging Report ---
PROCEDURE: CT angiography of the chest with contrast. TECHNIQUE: Multiple contiguous axial images were obtained through the chest after uneventful bolus administration of intravenous contrast. 2D reconstructed CTA MIP acquisitions were also performed. INDICATION: Shortness of breath. Elevated d-dimer. Evaluate for pulmonary embolism. COMPARISONS: None available. FINDINGS: CT ANGIOGRAM: Evaluation for pulmonary embolism is markedly limited secondary to artifact caused by patient motion, suboptimal contrast bolus in the pulmonary arteries, and photon starvation artifact. There is no large central pulmonary embolism. Normal caliber pulmonary arteries. No acute aortic abnormality seen on this study performed without cardiac gating. TRACHEA AND MAIN BRONCHI: Patent without evidence of tracheal or endobronchial lesion. LUNGS AND PLEURA: Clear lungs. No pleural effusion or pneumothorax. MEDIASTINUM AND RONI: Visualized thyroid gland is normal. No mediastinal or hilar lymphadenopathy. Esophagus is nondistended. HEART AND VESSELS: Heart is normal in size. No pericardial effusion. Thoracic aorta is nonaneurysmal. DIAPHRAGM AND UPPER ABDOMEN: Diffuse low attenuation of the hepatic parenchyma likely reflects hepatic steatosis. The diaphragm and visualized upper abdomen are otherwise unremarkable. CHEST WALL: Unremarkable. BONES: Allowing for artifact caused by patient motion, no acute osseous abnormality is identified. IMPRESSION: Markedly limited examination for evaluation of pulmonary embolism. No large central pulmonary embolism is identified. No acute findings in the chest. Diffuse low attenuation of the visualized liver, likely reflecting hepatic steatosis. Dictated by: Dictated on workstation # [id number]
--- NOTE | 2018-08-24 19:13 | NUR ---
Doctor Asiya in to see the patient.
[2018-08-24] MEDS ORDERED: PRD20T PO (19:23)
[2018-08-24 19:27] VITALS: BP 139/81
[2018-08-25] MEDS ORDERED: PRD20T PO (09:12)
== END 2018-08-24 19:27 | disposition home or self-care (01) ==
LOC: EDUNIT# 14:21 → ER FS 14:22
DX: T78.40XA Allergy, unspecified, initial encounter (principal); R10.9 Unspecified abdominal pain; J44.9 Chronic obstructive pulmonary disease, unspecified; I10 Essential (primary) hypertension; E11.9 Type 2 diabetes mellitus without complications; Z88.0 Allergy status to penicillin; Z88.2 Allergy status to sulfonamides; Z88.8 Allergy status to other drugs, medicaments and biological substances
CPT/HCPCS: 36415; 71045; 71275; 80048; 83880; 84484; 85025; 85379

== ENCOUNTER → 2020-07-08 | Outpatient (CLI) | payer BC ==
[~2020-07-08] MED LIST changes: +ACHYD1T PO; -HYDR-3820 PO; +PRD20T PO
--- NOTE | 2020-07-08 08:30 | Diagnostic Imaging Report ---
PROCEDURE: CT sinuses without contrast TECHNIQUE: Multiple contiguous axial images were obtained through the sinuses without the use of intravenous contrast. Coronal and sagittal reformations were then performed. Auto Exposure Controls were utilized during the CT exam to meet ALARA standards for radiation dose reduction. INDICATION: Recurrent sinusitis. COMPARISON: None. FINDINGS: Minimal mucosal thickening in the floor if the maxillary sinuses. No air-fluid levels. The ostiomeatal units and frontal recesses are patent. Moderate rightward bowing of the nasal septum. The mastoids and middle ears are clear. Skull base is intact. Visualized intracranial contents and orbits are negative. Normal alignment of the temporomandibular joints. IMPRESSION: Minimal mucosal thickening in the maxillary sinuses. The paranasal sinuses are otherwise clear. Dictated by: Dictated on workstation # [id number]
== END ==
LOC: RAD FS 07:46
PROVIDERS: ATTEND Nurse Practitioner Family
DX: J32.9 Chronic sinusitis, unspecified (principal)
CPT/HCPCS: 70486